=== PATIENT | female | born 2000 | race Two or more races ===

== ENCOUNTER 2022-01-30 10:54 | Outpatient (CLI) | payer OTHER | END 2022-01-30 10:55 | disposition home or self-care (01) | LOC: LAB 10:54 | PROVIDERS: ATTEND Obstetrics & Gynecology Gynecology | DX: R10.2 Pelvic and perineal pain (principal); N30.00 Acute cystitis without hematuria; N30.01 Acute cystitis with hematuria; E11.9 Type 2 diabetes mellitus without complications; E78.2 Mixed hyperlipidemia; N95.1 Menopausal and female climacteric states ==

== ENCOUNTER 2022-02-09 15:03 | Outpatient (CLI) | payer OTHER | END 2022-02-09 15:12 | disposition home or self-care (01) | LOC: SONOGRAMA 15:03 | PROVIDERS: ATTEND Obstetrics & Gynecology Gynecology | DX: R10.2 Pelvic and perineal pain (principal) ==